=== PATIENT | female | born 1990 | race Caucasian/White ===

== ENCOUNTER 2019-11-11 17:33 | Emergency (ER) | payer OTHER, SELFPAY ==
[2019-11-11 17:46] VITALS: BP 133/77; PULSE 88; RESP 20; TEMP 36.9; O2SAT 99
[2019-11-11 18:03] LABS: Add Urine Microscopic? YES; Appearance Urine Cloudy (Clear); Bacteria Urine 2+ /hpf; Bilirubin Urine Negative (Negative); Blood Urine 3+ (Negative); Color Urine Yellow (Yellow); Glucose Urine UA Negative (Negative); Ketones Urine Negative (Negative); Leukocyte Esterase Ur 3+ LEU/UL (Negative); Mucus Urine Rare /lpf; Nitrate Urine Positive (Negative); Protein Urine 1+ mg/dL (Negative); RBC Urine 21-50 /hpf (0-2); Squamous Epithelial Cell Urine Occasional /hpf (Few); Urobilinogen Urine Negative mg/dL (<2.0); WBC Urine >75 /hpf
[2019-11-11 19:00] VITALS: BP 118/78; PULSE 75; RESP 18; TEMP 36.4; O2SAT 100
--- NOTE | 2019-11-11 19:01 | ED.ABDPAIN ---
HPI - Abdominal Pain General Chief Complaint: Urogenital-Female Stated Complaint: bladder inf Time Seen by Provider: 11/11/19 18:03 Source: patient Mode of arrival: ambulatory Limitations: no limitations History of Present Illness HPI narrative: Patient is a 29-year-old female who presents with concern for possible urinary tract infection with increasing low back pain in the lumbar region denies any belly pain fever chills nausea vomiting diarrhea and on arrival is resting comfortably in the room in no distress patient has not taken anything for symptoms and has not been seen for this complaint and has had similar occurrence in the past Related Data Allergies Allergy/AdvReac Type Severity Reaction Status Date / Time No Known Allergies Allergy Unverified 12/25/18 17:45 Review of Systems Review of Systems: All systems reviewed & are unremarkable except as noted in HPI and below PMFSH Surgical History Surgical History (Updated 11/11/19 @ 19:03 by Rodney Benavidez PA-C) S/P tonsillectomy Social History Social History (Updated 11/11/19 @ 19:03 by Rodney Benavidez PA-C) Smoking status: Current every day smoker Exam Narrative: Exam Narrative: GENERAL: Well-appearing, well-nourished, and in no acute distress. HEAD: Normocephalic, atraumatic. EYES: PERRLA and EOMI. ENT: Nares clear, no rhinorrhea or epistaxis. Mucous membranes moist. CHEST: Clear to auscultation. No respiratory distress. No wheezes rales or rhonchi HEART: Regular rate and rhythm. No murmur heard. EXTREMITIES: Normal range of motion. No edema. SKIN: Warm, dry, no rash. NEURO: No focal deficits. Alert and oriented x3. PSYCH: Normal mood and affect. Course Course Emergency Course: Patient in the room in no distress aware of case findings treatment plan and diagnosis agreeing to follow-up as directed Vital Signs Vital signs: Vital Signs Temperature 98.4 F 11/11/19 17:46 Pulse Rate 88 11/11/19 17:46 Respiratory Rate 20 11/11/19 17:46 Blood Pressure 133/77 11/11/19 17:46 Pulse Oximetry 99 11/11/19 17:46 Temperature 98.4 F 11/11/19 17:46 Pulse Rate 88 11/11/19 17:46 Respiratory Rate 11/11/19 17:46 Blood Pressure 133/77 11/11/19 17:46 Pulse Oximetry 99 11/11/19 17:46 MDM - Abdominal Pain MDM Narrative Medical decision making narrative: Patient will be treated for urinary tract infection afebrile nontoxic-appearing without emesis and no other complaints felt appropriate for outpatient reevaluation Lab Data Labs: Lab Results 11/11/19 Range/Units 17:48 Urine Color Yellow (Yellow) Urine Appearance Cloudy H (Clear) Urine pH 6.0 (5.0-9.0) Ur Specific [place] 1.010 (1.001-1.035) Urine Protein 1+ H (Negative) mg/dL Urine Glucose (UA) Negative (Negative) mg/dL Urine Ketones Negative (Negative) mg/dL Ur Blood (Man) 3+ H (Negative) Urine Nitrate Positive H (Negative) Urine Bilirubin Negative (Negative) Urine Urobilinogen Negative (<2.0) mg/dL Leukocyte Esterase Rfl 3+ H (Negative) MUSTAPHA/UL Urine RBC 21-50 H (0-2) /hpf Urine WBC >75 H /hpf Ur Squamous Epith Cells Occasional (Few) /hpf Urine Bacteria 2+ H /hpf Urine Mucus Rare /lpf UCG Bedside Result Negative Reference Range: Negative Discharge Plan Discharge Clinical Impression: Urinary tract infection Patient Disposition: Home, Self-Care Condition: Stable Instructions: Antibiotic Form, Urinary Tract Infection in Women (ED) Additional Instructions: Follow up with primary care in the next 2-3 days for re-evaluation. Antibiotics as prescribed. Increase fluid intake. Tylenol and Motrin for pain and or fever if needed. Follow up with your doctor for further care. Call your doctor or return to the emergency department if needed for worsening symptoms or problems, especially if you have persistent high fever, vomiting, inability to urinate, weakness, blood
[2019-11-11 20:08] VITALS: BP 118/68; PULSE 78; RESP 16; O2SAT 100
== END 2019-11-11 20:09 | disposition home or self-care (01) ==
PROVIDERS: Emergency Medicine; Emergency Provider Emergency Medicine
DX: N39.0 Urinary tract infection, site not specified (principal); F17.200 Nicotine dependence, unspecified, uncomplicated
CPT/HCPCS: 81001; 81025; 87077; 87086; 87088; 87186; 99283

== ENCOUNTER 2020-04-14 15:30 | Outpatient (RCR) | payer OTHER, SELFPAY ==
--- NOTE | 2020-03-17 15:48 | PTOPEVAL ---
PHYSICAL THERAPY EVALUATION AND PLAN OF CARE Thank you for referring Rosy Monreal to [facility]. I recommend Rosy participate in physical therapy 2x/week for 4 weeks to address below stated findings. Please review, sign, date and return this plan of care JOZEF. I agree with and certify that the following plan of care is medically necessary. Referring Physician Date Attending Provider: Champ Robles, MD Evaluation Diagnosis low back pain Onset 8 years Cause chronic lifting Subjective Information Rosy is here today with Query Text:As Reported By Patient/ chronic back pain from overuse Family /lifting. She worked as a DATA ENTRY SUPERVISOR for 10 years. She reports that sitting in a straight up or without a back she only lasts for about 30minutes. She reports that if she can slowly get out of bed, there is less discomfort, but if she has to get up right out of bed there is quite a bit of pain and unsteadiness. Reports tingling in bilateral legs and across lower back, specifically left leg to the knee. Does not do a lot of lifting except for some boxes on occasion and her 4 year old daughter. Diagnostic Tests X-Rays For This Problem Yes Other Tests For This Problem Yes: CT = DDD, herniated discs Lower Spine, Lumbar Reported Pain Level 3 Pain Description Aching Pain Frequency Chronic,Continuous Lowest Pain Intensity 2 Greatest Pain Intensity 8 Pain Aggravating Factors Lifting,Walking,Weight Bearing /Standing Lumbar ROM Lumbar Flexion (0-90) 50 Lumbar Extension (0-40) 5 Lateral Rotation Right (0-45) 15 Lateral Rotation Left (0-45) 15 Lumbar Strength Upper Abdominal Strength 3 Fair Lower Abdominal Strength 3 Fair Lumbar Functional Strength Comments decreased left sided lumbar stability as evidenced by decreased left SLS Lower Extremity Muscle Strength Testing General Lower Extremity Strength Reason Not Measured WNL/Left,WNL/Right Muscle Length Testing Two-Joint Hip Flexor Shortened Muscles Short (R) Iliopsoas,Short (L) Iliopsoas P
--- NOTE | 2020-04-14 16:18 | PTOPEVAL ---
PHYSICAL THERAPY DISCHARGE NOTE Thank you for referring Rosy Monreal to [facility]. See below for details of discharge. Please review, sign, date and return this plan of care JOZEF. I agree with and certify that the following plan of care is medically necessary. Referring Physician Date Attending Provider: Champ Robles, Diagnosis low back pain Onset 8 years Cause chronic lifting Subjective Information Rosy is here today with Query Text:As Reported By Patient/ chronic back pain from overuse Family /lifting. She reports there is no change at all from start of therapy. Electrical stimulation will give her a few hours relief, but returns back to normal. States that she does starts to feel pain when she is sitting on her bed and will try to ignore it, but when she cannot ignore it anymore, she will do her home exercise program. Reports her pain is constantly an 8 or 9 out of 10. States that when she sits too long it feels like someone is twisting my spine and wrapping barbed wire around it at the same time. Self Report Pain Assessment Lower Spine, Lumbar Reported Pain Level 8 Pain Description Aching Pain Frequency Chronic,Continuous Pain Aggravating Factors Lifting,Walking,Weight Bearing /Standing Pain Behaviors None Interventions Used By Clinicians Electrical Stimulation, Exercise,Heat,Manual Therapy Techniques Pain Score Pain Score 8: Self Report Cervical and Lumbar ROM Lumbar ROM Lumbar Flexion (0-90) 50 Query Text:Active in Degrees Lumbar Flexion Active [place] Query Text:Hands to: Lumbar Extension (0-40) 8 Query Text:Active in Degrees Lateral Rotation Right (0-45) 20 Query Text:Active in Degrees Lateral Rotation Left (0-45) 20 Query Text:Active in Degrees Lumbar Comments left rotation illicits pain along left hip Cervical and Lumbar Muscle Testing Lumbar Strength Upper Abdominal Strength 3+Fair+ Lower Abdominal Strength 3 Fair Lumbar Functional Strength Comments SLS symmetrical Lower Extremity Muscle Strength
== END 2020-04-18 13:10 | disposition home or self-care (01) ==
LOC: ANHPT 15:30
PROVIDERS: PCP Emergency Medicine; Visit Provider Orthopaedic Surgery
DX: M54.5 Low back pain (principal)
CPT/HCPCS: 97014; 97110; 97140; 97161; 97530; G0283

== ENCOUNTER 2020-07-05 11:00 | Outpatient (RCR) | payer OTHER, SELFPAY ==
--- NOTE | 2020-05-31 09:16 | PTOPEVAL ---
PHYSICAL THERAPY EVALUATION AND PLAN OF CARE Thank you for referring Rosy Monreal to [facility] The patient is scheduled to be seen for therapy? 1-2x/week for 4 weeks for aquatic therapy. Range of frequency is due to accommodating patient's work schedule. Please review, sign, date and return this plan of care JOZEF. I agree with and certify that the following plan of care is medically necessary. Referring Physician Date Attending Provider: Champ Robles, Evaluation Diagnosis low back pain Onset 10 years Additional Evaluation Detail MRI since last time she was here: herniated discs, pinches nerves, DDD Subjective Information Was here for therapy earlier Query Text:As Reported By Patient/ in the summer. She states that Family today her back pain is worse than it was. She started a second job. States that she has been doing her exercises at home but admits not as much as she should because she is always at work. States she can only sit for up to 15 minutes and after that amount of time her legs will go numb. If she is able to stand up and walk around it will take a few minutes to go back to normal. States she is supposed to set up pain management appointments also. Self Report Pain Assessment Right Spine, Lumbar Reported Pain Level 8 Pain Description Aching,Burning,Radiating,Sharp Pain Frequency Chronic,Continuous Lowest Pain Intensity 6 Greatest Pain Intensity 10 Pain Aggravating Factors ADL's,Bending,Changing Position,Exercise/Activity, Lifting,Palpation,Prolonged Position,Stair Climbing, Walking,Weight Bearing/ Standing Pain Behaviors Anxious,Teary Eyed/Crying Pain Relief Interventions Used By None Patient Lumbar ROM Lumbar Flexion (0-90) 25 Query Text:Active in Degrees Lumbar Extension (0-40) 5 Query Text:Active in Degrees Lateral Rotation Right (0-45) 40 Query Text:Active in Degrees Lateral Rotation Left (0-45) 15 Query Text:Active in Degrees Lumbar Comments reverse lumbar curve; extension:
--- NOTE | 2020-06-07 09:48 | PCPTNOTE ---
PT cancelled appointment at 13:30 due to scheduling conflict.
--- NOTE | 2020-06-21 09:18 | PCPTNOTE ---
Patient did not show up for scheduled appointment this date.
--- NOTE | 2020-06-28 08:08 | PCPTNOTE ---
Patient did not show up for scheduled appointment this date. Called and talked with patient stating she forgot the appointment. Rescheduled the appointment for 07/05/2020 at 11:00AM.
--- NOTE | 2020-07-05 13:24 | PCPTNOTE ---
Patient did not show up for scheduled appointment this date. Called patient and left a voicemail. Asked her to call back.
--- NOTE | 2020-07-19 16:42 | PCPTNOTE ---
PHYSICAL THERAPY DISCHARGE NOTE Attending Provider: Champ Robles, Patient:Rosy Monreal Date of :1990 Rosy has not returned for any further treatments since 07/05/2020, therefore she will be discharged at this time. Patient?s initial visit was on 05/31/2020 08:00 and she had a total of 2 visits. She did not show for three scheduled appointments and cancelled one scheduled appointment. The goals have not been met. Thank you for referring this patient to [facility]. Please review, sign, date and return this discharge summary JOZEF. I have been updated about the patient's current status and I agree with discharge from the above service at this time. Referring Physician Date
== END 2020-07-20 10:38 | disposition home or self-care (01) ==
LOC: ANHPT 11:00
PROVIDERS: Visit Provider Orthopaedic Surgery
DX: M54.5 Low back pain (principal)
CPT/HCPCS: 97113; 97162

== ENCOUNTER 2020-07-05 14:26 | Emergency (ER) | payer OTHER, SELFPAY ==
[2020-07-05 14:30] VITALS: BP 133/92; PULSE 94; RESP 16; TEMP 36.1; O2SAT 100
--- NOTE | 2020-07-05 15:48 | ED.DENTAL ---
HPI - Dental/Oral General Chief complaint: Dental/Oral Stated complaint: INFECTED TOOTH Time Seen by Provider: 07/05/20 14:56 Source: patient Mode of arrival: ambulatory Limitations: no limitations History of Present Illness HPI Narrative: patient is a 30-year-old female who presents to emergency department for evaluation of right sided dental pain with history of decay pain radiates into the ear and to the face patient patient has taken [id number] medications with minimal improvement. Patient presents in no distress and does not appear uncomfortable Related Data Home Medications Medication Instructions Recorded Confirmed cyclobenzaprine mg HS 07/05/20 naproxen BID 07/05/20 Allergies Allergy/AdvReac Type Severity Reaction Status Date / Time No Known Allergies Allergy Verified 07/05/20 15:08 Review of Systems Review of Systems: All systems reviewed & are unremarkable except as noted in HPI and below PMFSH Surgical History Surgical History S/P tonsillectomy Social History Social History Smoking status: Current every day smoker Gender identity (if verbalized by the patient): Female Exam Narrative: Exam Narrative: GENERAL: Well-appearing, well-nourished, and in no acute distress. HEAD: Normocephalic, atraumatic. EYES: PERRLA and EOMI. ENT: Nares clear, no rhinorrhea or epistaxis. Mucous membranes moist. Patient with dental decay no erythema swelling or other abnormalities of the oropharynx uvula is midline no trismus or drooling NECK: Supple. No adenopathy or masses. CHEST: Clear to auscultation. No respiratory distress. No wheezes rales or rhonchi HEART: Regular rate and rhythm. No murmur heard. SKIN: Warm, dry, no rash. NEURO: No focal deficits. Alert and oriented x3. PSYCH: Normal mood and affect. Course Course Emergency Course: Patient in the room in no distress aware of case findings treatment plan and diagnosis agreeing to follow-up as directed Vital Signs Vital signs: Vital Signs Temperature 96.9 F L 07/05/20 14:30 Pulse Rate 94 07/05/20 14:30 Respiratory Rate 16 07/05/20 14:30 Blood Pressure 133/92 H 07/05/20 14:30 Pulse Oximetry 100 07/05/20 14:30 Temperature 96.9 F L 07/05/20 14:30 Pulse Rate 94 07/05/20 14:30 Respiratory Rate 16 07/05/20 14:30 Blood Pressure 133/92 H 07/05/20 14:30 Pulse Oximetry 100 07/05/20 14:30 MDM - Dental/Oral MDM Narrative Medical decision making narrative: Paitents pain and complaint coupled with physical findings are consistant with dentalgia. There are no focal signs of space occupying lesions that are compromising to the ariway. The floor of the mouth is soft with no signs of Ludwigs Angina. Patient is without trismus or drooling and able to swallow secreations. Patient is felt appropriate for discharge home with dental follow up. Discharge Plan Discharge Clinical Impression: Toothache Patient Disposition: Home, Self-Care Condition: Stable Instructions: Antibiotic Form, Toothache (ED) Additional Instructions: Follow-up with dentistry in the next 7 days for reevaluation Return if symptoms worsen or concerns or any increase in redness swelling pain fever over 100.5 vomiting. Stay well-hydrated Only take medications as directed Follow patient education sheets Prescriptions: New clindamycin HCl 150 mg capsule 450 mg PO Q8H 10 Days Qty: 90 RF: 0 chlorhexidine gluconate [Peridex] 0.12 % mouthwash 15 ml MUCOUS MEM BID Qty: 1500 RF: 0 No Action cephalexin [Keflex] 500 mg capsule 500 mg PO Q12H 5 Days Qty: 10 RF: 0 naproxen 500 mg tablet BID RF: 0 cyclobenzaprine 10 mg tablet HS RF: 0 Follow-up/Referrals: PHYSICIAN,DISPOSAL MAN [Primary Care Provider] - Stand Alone Forms: Work/School Release IP
[2020-07-05 16:02] VITALS: BP 126/84; PULSE 76; RESP 16; O2SAT 98
== END 2020-07-05 16:03 | disposition home or self-care (01) ==
PROVIDERS: Emergency Provider Emergency Medicine
DX: K08.89 Other specified disorders of teeth and supporting structures (principal); F17.200 Nicotine dependence, unspecified, uncomplicated
CPT/HCPCS: 99283

== ENCOUNTER 2020-12-14 16:15 | Emergency (ER) | payer OTHER, SELFPAY ==
[2020-12-14 16:17] VITALS: BP 140/84; PULSE 74; RESP 14; TEMP 35.9; O2SAT 99
[2020-12-14 16:30] LABS: Basophils Percent Auto 0.4 % (0.2-1.2); Eosinophils Absolute Auto 0.1 K/mm3 (0-0.3); Eosinophils Percent Auto 0.9 % (0-4.4); Hematocrit 36.4 % (37.0-47.0); Hemoglobin 12.1 g/dL (12.0-15.0); Immature Granulocyte Absolute 0.03 K/mm3 (0.00-0.031); Immature Granulocyte Percent A 0.3 % (0-0.5); Lymphocytes Absolute Auto 3.64 K/mm3 (0.9-3.2); Lymphocytes Percent Auto 37.1 % (18.3-44.2); Mean Corpuscular HGB Conc 33.2 g/dl (32-36); Mean Corpuscular Hemoglobin 27.9 pg (26-34); Mean Corpuscular Volume 84.1 fl (80-100); Mean Platelet Volume 9.7 fl (7.4-10.4); Monocytes Absolute Auto 0.6 K/mm3 (0.1-0.6); Monocytes Percent Auto 6.2 % (2.6-8.5); Neutrophils Absolute Auto 5.4 K/mm3 (1.3-6.7); Neutrophils Percent Auto 55.1 % (45.5-73.1); Platelet Count Result 282 k/mm3 (150-375); Red Blood Count 4.33 M/mm3 (4.2-5.4); Red Cell Distribution Width 14.4 % (11.5-14.5); White Blood Count 9.8 K/mm3 (4.5-10.0)
--- NOTE | 2020-12-14 16:42 | ED.ABDPAIN ---
HPI - Abdominal Pain General Chief Complaint: Abdominal Pain Stated Complaint: abdominal pain/nausea Time Seen by Provider: 12/14/20 16:25 Source: patient Mode of arrival: ambulatory Limitations: no limitations History of Present Illness HPI narrative: This is a 30 year old female who presents for evaluation of intermittent epigastric pain. This pain has been presents for 3 days and she reports it occurs for a few minutes. It resolves spontaneous . She denies radiation of her pain. SHe reports nausea but no vomiting or fever. She denies back pain. She reports burning with urinary for 1 week. LMP 3 weeks ago. Related Data Home Medications Medication Instructions Recorded Confirmed cyclobenzaprine mg HS 07/05/20 naproxen BID 07/05/20 Allergies Allergy/AdvReac Type Severity Reaction Status Date / Time No Known Allergies Allergy Verified 12/14/20 16:53 Review of Systems Review of Systems: All systems reviewed & are unremarkable except as noted in HPI and below Constitutional: Constitutional: Denies chills and Denies fever(s) Cardiovascular: Cardiovascular: Denies chest pain Respiratory: Respiratory: Denies cough and Denies dyspnea Gastrointestinal: Gastrointestinal: Reports abdominal pain, Denies constipation, Denies diarrhea and Denies vomiting PMFSH Past Medical History Medical History (Updated 12/14/20 @ 17:57 by Jeanie Price MD) Patient denies medical problems Surgical History Surgical History (Updated 12/14/20 @ 16:46 by Jeanie Price MD) Hx of cholecystectomy S/P tonsillectomy Social History Social History Smoking status: Current every day smoker Gender identity (if verbalized by the patient): Female Exam Const: General: no acute distress and alert Orientation/consciousness: patient oriented x3 Chest: Chest palpation & inspection: normal inspection of the chest Resp: Effort & Inspection: normal respiratory effort and no retractions Auscultation: clear to auscultation bilaterally Cardio: Rate: regular rate Rhythm: regular rhythm Heart sounds: no murmurs GI: GI Palp: Yes Soft to palpation, Yes Tenderness to palpation present (GI) (epigastric) and No Guarding due to palpation present (GI) Auscultation: normal bowel sounds Skin: General skin exam: normal color Rashes: no rashes Neuro: General: patient oriented x3, moves all extremities and CN's II-XI intact bilaterally Psych: Mental Status: mental status grossly normal Affect: normal affect Course Reevaluation(s) Reevaluation #1: Patient is sleeping and in no acute distress. She reports she feels better. I Discussed UA shows UTI and labs are otherwise unremarkable. No fever or leukocytosis Date: 12/14/20 Time: 17:52 Vital Signs Vital signs: Vital Signs Temperature 96.7 F L 12/14/20 16:17 Pulse Rate 74 12/14/20 16:17 Respiratory Rate 14 12/14/20 16:17 Blood Pressure 140/84 12/14/20 16:17 Pulse Oximetry 99 12/14/20 16:17 Temperature 96.7 F L 12/14/20 16:17 Pulse Rate 88 12/14/20 18:29 Respiratory Rate 17 12/14/20 18:29 Blood Pressure 133/87 12/14/20 18:29 Pulse Oximetry 100 12/14/20 18:29 MDM - Abdominal Pain Lab Data Attestation: I reviewed the patient's lab results. Result diagrams: 12/14/20 16:23 12/14/20 16:23 Labs: Lab Results 12/14/20 12/14/20 12/14/20 Range/Units 16:23 16:23 16:30 WBC 9.8 (4.5-10.0) K/mm3 RBC 4.33 (4.2-5.4) M/mm3 Hgb 12.1 (12.0-15.0) g/dL Hct 36.4 L (37.0-47.0) % MCV 84.1 (80-100) fl MCH 27.9 (26-34) pg MCHC 33.2 (32-36) g/dl RDW 14.4 (11.5-14.5) % Plt Count 282 (150-375) k/mm3 MPV 9.7 (7.4-10.4) fl Immature Gran % (Auto) 0.3 (0-0.5) % Neut % (Auto) 55.1 (45.5-73.1) % Lymph % (Auto) 37.1 (18.3-44.2) % [place] % (Auto) 6.2 (2.6-8.5) % Eos % (Auto) 0.9 (0-4.4) % Ba
[2020-12-14 16:44] LABS: Alanine Aminotransferase 34 U/L (4-35); Albumin Level 4.3 g/dL (3.5-5.1); Alkaline Phosphatase 74 U/L (38-126); Anion Gap 7 mmol/L (8-16); Aspartate Amino Transferase 26 U/L (14-36); Bilirubin,Total 0.3 mg/dL (0.2-1.3); Blood Urea Nitrogen 10 mg/dL (7-17); Calcium 9.2 mg/dL (8.4-10.2); Carbon Dioxide 27 mmol/L (22-30); Chloride 107 mmol/L (98-107); Estimated CRCL calculation 111 ml/min; Estimated Glomerular Filt Rate > 60; Glucose 87 mg/dL (65-105); Lipase 151 U/L (23-300); Potassium 3.5 mmol/L (3.4-5.0); Sodium 141 mmol/L (137-145)
[2020-12-14 16:44] LABS: Add Urine Microscopic? YES; Amorphous Sediment Urine Few; Appearance Urine Cloudy (Clear); Bacteria Urine Trace /hpf; Bilirubin Urine Negative (Negative); Blood Urine Negative (Negative); Color Urine Straw (Yellow); Glucose Urine UA Negative (Negative); Ketones Urine Negative (Negative); Leukocyte Esterase Ur 3+ LEU/UL (Negative); Mucus Urine Rare /lpf; Nitrate Urine Negative (Negative); Protein Urine Negative (Negative); Specific Grav Ur 1.009 (1.001-1.035); Squamous Epithelial Cell Urine Occasional /hpf (Few); Urobilinogen Urine Negative mg/dL (<2.0); WBC Urine >75 /hpf
[2020-12-14] MEDS: BELLADONNA ALK/PHENOB ELIX 10 ML, MAG HYDROX/ALUMINUM HYD/SIMETH 30 ML, LIDOCAINE HCL 2... PO (16:54)
[2020-12-14] MEDS: ONDANSETRON HCL ODT 4 MG TABLET PO (16:54)
[2020-12-14 16:58] VITALS: BP 147/93; PULSE 83; RESP 15; O2SAT 98
[2020-12-14] MEDS: cefTRIAXone 1 GM VIAL IM (18:24)
[2020-12-14] MEDS: LIDOCAINE HCL 1% LOCAL INJ 20 ML VIAL (18:28)
[2020-12-14 18:29] VITALS: BP 133/87; PULSE 88; RESP 17; O2SAT 100
== END 2020-12-14 18:30 | disposition home or self-care (01) ==
PROVIDERS: Emergency Medicine; Emergency Provider General Practice
DX: N30.00 Acute cystitis without hematuria (principal); F17.200 Nicotine dependence, unspecified, uncomplicated
CPT/HCPCS: 36415; 80053; 81001; 81025; 83690; 85025; 87077; 87086; 87088; 87186; 96372; 99283; A9270; J0696

== ENCOUNTER 2021-02-08 16:54 | Emergency (ER) | payer OTHER, SELFPAY ==
--- NOTE | ~2021-02-08 | XR_ITS ---
EXAMINATION: XR chest 2V DATE: 02/08/2021 17:46 INDICATION: Shortness of breath. Chest pain. TECHNIQUE: Frontal and lateral views of the chest were obtained. COMPARISON: Chest 2 views 12/25/2018 FINDINGS: The chest demonstrates clear lungs without pneumonia, pleural effusion, or pneumothorax. Th e heart size is normal. Surgical clips in the right upper quadrant are likely from cholecystectomy. IMPRESSION: 1. No acute cardiopulmonary disease. Reviewed, dictated and finalized at location A.
[2021-02-08 16:55] VITALS: BP 143/83; PULSE 88; RESP 18; TEMP 36.5; O2SAT 99
[2021-02-08] MEDS: predniSONE 20 MG TABLET 60 MG PO (17:18)
[2021-02-08 17:28] VITALS: PULSE 80; RESP 16
[2021-02-08] MEDS: ALBUTEROL SULFATE NEB 2.5 MG/0.5 ML INH 5 MG INHALATION (17:28)
[2021-02-08] MEDS: IPRATROPIUM BR 0.02% INH SOLN 0.5 MG/2.5 ML VIAL INHALATION (17:28)
[2021-02-08 17:37] VITALS: PULSE 80; RESP 16
--- NOTE | 2021-02-08 17:55 | ED.URI ---
HPI - URI/Sore Throat General Chief Complaint: Upper Respiratory Infection Stated Complaint: hard to breathe, chest hurts Time Seen by Provider: 02/08/21 17:06 Source: patient Mode of arrival: ambulatory Limitations: no limitations History of Present Illness HPI Narrative: 30-year-old with no major medical problems here with complaints of cough chest tightness since this morning. She denies any fever or chills. Cough is nonproductive. She states that she had Covid in the month of November of this year. MD elicited complaint: cough Onset (ago): day(s) (1) Consistency: constant Severity: mild Exacerbating factors: nothing Relieving factors: nothing Related Data Home Medications Medication Instructions Recorded Confirmed cyclobenzaprine mg HS 07/05/20 naproxen BID 07/05/20 Allergies Allergy/AdvReac Type Severity Reaction Status Date / Time No Known Allergies Allergy Verified 02/08/21 17:01 Review of Systems Review of Systems: All systems reviewed & are unremarkable except as noted in HPI and below Constitutional: Constitutional: Reports no additional constitutional complaints Eyes: Eyes: Reports no additional eye complaints Cardiovascular: Cardiovascular: Reports no additional cardiovascular complaints Respiratory: Respiratory: Reports as per HPI Gastrointestinal: Gastrointestinal: Reports no additional gastrointestinal complaints Musculoskeletal: Musculoskeletal: Reports no additional musculoskeletal complaints Integumentary/Breasts: Skin/Breast: Reports system reviewed and no additional complaints, except as docu Neurologic: Reports system reviewed and no additional complaints, except as documented PMFSH Past Medical History Medical History Patient denies medical problems Surgical History Surgical History Hx of cholecystectomy S/P tonsillectomy Social History Social History Smoking status: Current every day smoker Gender identity (if verbalized by the patient): Female Exam Narrative: Exam Narrative: GENERAL: Well-appearing, well-nourished, and in no acute distress. HEAD: Normocephalic, atraumatic. EYES: PERRLA and EOMI. NECK: Supple. CHEST: Clear to auscultation. No respiratory distress. HEART: Regular rate and rhythm. No murmur heard. Normal peripheral pulses. ABDOMEN: Soft, nontender, nondistended, normal active bowel sounds. EXTREMITIES: Normal range of motion. No edema. SKIN: Warm, dry, no rash. NEURO: No focal deficits. Alert and oriented x3. PSYCH: Normal mood and affect. Course Course Emergency Course: Inform patient about her chest x-ray findings. Patient states that she is feeling much better after neb treatment. I advised her to take prednisone as prescribed. Can use the inhaler as needed. Vital Signs Vital signs: Vital Signs Temperature 36.5 C 02/08/21 16:55 Pulse Rate 88 02/08/21 16:55 Respiratory Rate 18 02/08/21 16:55 Blood Pressure 143/83 H 02/08/21 16:55 Pulse Oximetry 99 02/08/21 16:55 Temperature 36.5 C 02/08/21 16:55 Pulse Rate 80 02/08/21 17:37 Respiratory Rate 16 02/08/21 17:37 Blood Pressure 143/83 H 02/08/21 16:55 Pulse Oximetry 99 02/08/21 16:55 MDM - URI/Sore Throat Imaging Data Radiologist's impression: ITS Impressions Chest X-Ray 02/08/21 17:47 IMPRESSION: 1. No acute cardiopulmonary disease. Discharge Plan Discharge Clinical Impression: Bronchitis, Viral infection Patient Disposition: Still a Patient Condition: Stable Instructions: Acute Bronchitis (ED) Prescriptions: New prednisone 20 mg tablet 20 mg PO DAILY Qty: 7 RF: 0 albuterol sulfate [ProAir HFA] 90 mcg/actuation HFA aerosol inhaler 1 inh inhalation QID PRN (Reason: shortness of breath or wheezing) Qty: 6.7 RF: 0 No Action cephalexin
[2021-02-08 18:14] VITALS: BP 133/74; PULSE 88; RESP 19; O2SAT 100
== END 2021-02-08 18:20 | disposition home or self-care (01) ==
PROVIDERS: Emergency Provider Family Medicine
DX: J40 Bronchitis, not specified as acute or chronic (principal); B34.9 Viral infection, unspecified; F17.200 Nicotine dependence, unspecified, uncomplicated
CPT/HCPCS: 71046; 94640; 99283; J7512

== ENCOUNTER 2021-04-21 08:44 | Emergency (ER) | payer OTHER, SELFPAY ==
[2021-04-21 08:50] VITALS: BP 128/84; PULSE 68; RESP 18; TEMP 36.8; O2SAT 98
--- NOTE | 2021-04-21 09:28 | ED.GENADULT ---
HPI - General Adult General Chief complaint: Unspecified Stated complaint: multiple complaints Time Seen by Provider: 04/21/21 08:56 Source: patient and RN notes reviewed Mode of arrival: ambulatory Limitations: no limitations History of Present Illness HPI narrative: This is a 30 year old female with history of chronic back and arm pain who presents for evaluation of right arm pain and right dental abscess. She reports for the past 3 days she has had worsen right upper molar pain. She states her tooth has been broken off for while. She is unable to find a dentist to take her insurance so she states she frequently gets dental abscess. She denies fever, chills, nausea, vomiting gum swelling or drainage. She reports a metalic taste in her mouth. She also reports several years ago of right hand numbness and difficulty gripping. She states it seems worse over the past week. She denies focal weakness, headache. Related Data Home Medications Medication Instructions Recorded Confirmed cyclobenzaprine mg HS 07/05/20 naproxen BID 07/05/20 Allergies Allergy/AdvReac Type Severity Reaction Status Date / Time NSAIDS (Non-Steroidal Allergy Itching Verified 04/21/21 09:29 Anti-Inflamma Review of Systems Review of Systems: All systems reviewed & are unremarkable except as noted in HPI and below PMFSH Past Medical History Medical History (Updated 04/21/21 @ 09:41 by Jeanie Price MD) Chronic back pain Patient denies medical problems Surgical History Surgical History Hx of cholecystectomy S/P tonsillectomy Social History Social History Smoking status: Current every day smoker Gender identity (if verbalized by the patient): Female Exam Narrative: Exam Narrative: GENERAL: Well-appearing, well-nourished, and in no acute distress. HEAD: Normocephalic, atraumatic EYES: PERRLA and EOMI, conjunctiva clear without discharge NOSE: Nares clear, no rhinorrhea or epistaxis THROAT:Mucous membranes moist, Oropharynx normal without erythema, exudate, peritonsillar swelling or fluctuance, NECK: Supple, without lymphadenopathy or mass RESPIRATORY: No respiratory distress, Airway patent, Respirations non-labored, Clear to auscultation without rales, rhonchi or wheeze HEART: Regular rate and rhythm. No murmur heard. Normal peripheral pulses. ABDOMEN: Soft, nontender, nondistended, normal active bowel sounds. No masses. No rebound or guarding, No organomegaly. EXTREMITIES: No edema, normal strength with full range of motion. SKIN: Warm, dry, normal color without rash NEURO: Alert and oriented x3. CN 2-12 grossly intact. No focal deficits. no drift in arm, bilateral equal corrugator operator strong, sensation intact PSYCH: Normal mood and affect. HENMT: Teeth and gingiva: poor dentition (right tooth # 1 with tenderness, no drainage or gum swelling, no trismus) Course Reevaluation(s) Reevaluation #1: I have discussed with patient that she will be given antibiotics for tooth abscess and she will need to follow up with PCP regarding her radicular pain. No acute findings to suggest need of emergent intervention or imaging. Date: 04/21/21 Time: 09:39 Vital Signs Vital signs: Vital Signs Temperature 98.2 F 04/21/21 08:50 Pulse Rate 68 04/21/21 08:50 Respiratory Rate 18 04/21/21 08:50 Blood Pressure 128/84 04/21/21 08:50 Pulse Oximetry 98 04/21/21 08:50 Temperature 98.2 F 04/21/21 08:50 Pulse Rate 68 04/21/21 08:50 Respiratory Rate 18 04/21/21 08:50 Blood Pressure 128/84 04/21/21 08:50 Pulse Oximetry 98 04/21/21 08:50 Medical Decision Making Vital Signs Vital Signs: Vital Signs Temperature 98.2 F 04/21/21 08:50 Pulse Rate 68 04/21/21 08:50 Respiratory Rate 18 04/21/21 08:50 Blood Pressure 128/84 04/21/21 08:50 Pulse Oximetry 98 04/21/21 08:50 Temperatur
[2021-04-21] MEDS: AMOXICILLIN/CLAVULANATE K 875-125 MG TAB 1 TABLET PO (09:40)
[2021-04-21] MEDS: traMADol HCL (*CRX) 50 MG TABLET PO (09:40)
== END 2021-04-21 09:59 | disposition home or self-care (01) ==
PROVIDERS: Emergency Provider General Practice
DX: M54.12 Radiculopathy, cervical region (principal); K04.7 Periapical abscess without sinus; F17.200 Nicotine dependence, unspecified, uncomplicated
CPT/HCPCS: 99283; A9270

== ENCOUNTER 2021-07-19 08:24 | Outpatient (CLI) | payer OTHER, SELFPAY ==
--- NOTE | 2021-07-19 12:00 | NEURO_ITS ---
Impression: # Complains of numbness of right hand. # Right moderate Carpal Tunnel Syndrome. # No ulnar neuropathy. # Normal needle/EMG exam. Nerve Conduction Studies Anti Sensory Summary Table Stim Site NR Peak (ms) P-T Amp (?V) Site1 Site2 Delta-P (ms) Dist (cm) David (m/s) Left Median Anti Sensory (2-3nd Digit) Wrist 3.7 70.1 Wrist 2-3nd Digit 3.7 14.0 38 Wrist 3.6 58.7 Wrist 2-3nd Digit 3.7 14.0 38 Right Median Anti Sensory (2-3nd Digit) Wrist 7.2 23.1 Wrist 2-3nd Digit 7.2 14.0 19 Wrist 5.3 9.0 Wrist 2-3nd Digit 7.2 14.0 19 Left Radial Anti Sensory (Base 1st Digit) Wrist 2.0 31.5 Wrist Base 1st Digit 2.0 0.0 Right Radial Anti Sensory (Base 1st Digit) Wrist 1.9 35.9 Wrist Base 1st Digit 1.9 0.0 Left Ulnar Anti Sensory (5th Digit) Wrist 2.0 87.9 Wrist 5th Digit 2.0 14.0 70 Right Ulnar Anti Sensory (5th Digit) Wrist 2.1 89.1 Wrist 5th Digit 2.1 14.0 67 Motor Summary Table Stim Site NR Onset (ms) O-P Amp (mV) Site1 Site2 Delta-0 (ms) Dist (cm) David (m/s) Left Median Motor (Abd Poll Brev) Wrist 3.7 2.4 Elbow Wrist 4.8 27.0 56 Elbow 8.5 2.6 Right Median Motor (Abd Poll Brev) Wrist 5.4 1.0 Elbow Wrist 4.5 27.0 60 Elbow 9.9 1.4 Left Ulnar Motor (Abd Dig Minimi) Wrist 2.3 5.9 A Elbow Wrist 4.4 26.0 59 A Elbow 6.7 5.1 Right Ulnar Motor (Abd Dig Minimi) Wrist 2.0 6.3 A Elbow Wrist 4.5 27.0 60 A Elbow 6.5 4.9 F Wave Studies NR F-Lat (ms) L-R F-Lat (ms) Left Median (Mrkrs) (Abd Poll Brev) 24.51 0.52 Right Median (Mrkrs) (Abd Poll Brev) 25.03 0.52 Left Ulnar (Mrkrs) (Abd Dig Min) 24.38 0.47 Right Ulnar (Mrkrs) (Abd Dig Min) 23.91 0.47 EMG Side Muscle Nerve Root Ins Act Fibs Amp Dur Recrt Comment Right 1stDorInt Ulnar C8-T1 Nml Nml Nml Nml Nml Right Ext Indicis Radial (Post Int) C7-8 Nml Nml Nml Nml Nml Right Ext Digitorum Radial (Post Int) C7-8 Nml Nml Nml Nml Nml Right BrachioRad Radial C5-6 Nml Nml Nml Nml Nml Right PronatorTeres Median C6-7 Nml Nml Nml Nml Nml Right Abd Poll Brev Median C8-T1 Nml Nml Nml Nml Nml Left 1stDorInt Ulnar C8-T1 Nml Nml Nml Nml Nml Left Ext Indicis Radial (Post Int) C7-8 Nml Nml Nml Nml Nml Left Ext Digitorum Radial (Post Int) C7-8 Nml Nml Nml Nml Nml Left BrachioRad Radial C5-6 Nml Nml Nml Nml Nml Left PronatorTeres Median C6-7 Nml Nml Nml Nml Nml Left Abd Poll Brev Median C8-T1 Nml Nml Nml Nml Nml MTDD
== END 2021-07-19 08:25 | disposition home or self-care (01) ==
PROVIDERS: Visit Provider Internal Medicine
DX: G56.01 Carpal tunnel syndrome, right upper limb (principal)
CPT/HCPCS: 95886; 95911

== ENCOUNTER 2022-05-28 00:33 | Day surgery (SDC) | payer OTHER, SELFPAY ==
[2022-05-27 11:16] VITALS: BMI 28.5
--- NOTE | 2022-05-27 11:25 | PC.NURSE ---
Report to the Outpatient Waiting Room, entrance under the green pavilion located off [facility], at time 0600 on date 05/28/22. OR Time: 0730. - You and your visitor will be asked to self-screen and do not enter if you have any COVID symptoms. - Only one visitor and NO children visitors are allowed at this time. - The patient visitor is requested to leave or wait in car when not with patient due to restrictions. - A mask is required within the hospital. Patients may have clear liquids (water, carbonated beverages, clear teas, apple juice) until 3 hours prior to surgery with a maximum of 20 ounces. - No food from midnight until time of surgery Take the following medications with a SIP of water the morning of surgery: INHALER IF NEEDED Medications to discontinue per physician: N/A Date to take last dose: N/A Please no make-up, nail malawian, hairspray, perfume, deodorant, or body powder the day of surgery. No jewelry (including any body piercings) or valuables the day of surgery, leave them at home. Please take a shower or bath the night before, or the morning of, surgery with an antibacterial soap. Wear comfortable, loose fitting clothing. - Jewelry must be removed prior to entering the operating room. Rings and piercings that are not removed may be cut off. - The hospital will not accept responsibility for valuables. - Please leave all valuables, including medications, at home the day of surgery. If you are going home after surgery, a licensed wrecking car driver must drive you home. - NO public transportation without another adult. - We recommend that an adult stay with you for 24 hours following discharge. - We also recommend that you do not drive, make important decision, drink alcoholic beverages, or take any drugs that were not prescribed by your health care provider for at least 24 hours after your discharge time. Follow any additional instructions given to you from your surgeon. If you or anyone in your household have experienced Covid symptoms in the past week, please notify your surgeon or the nurse liaison at the phone number below for possible testing. Telephone instructions given to PT - LANDRY SHELTON and asked if any additional questions and then verbalized understanding. Patient advised to call surgeon office or pre surgery nurse liaison [phone] if any additional questions.
[2022-05-28] VITALS (10 sets, daily range): BP systolic 105–144; BP diastolic 60–85; PULSE 60–92; RESP 12–18; TEMP 36.5–36.9; O2SAT 94–100
[2022-05-28] MEDS: ACETAMINOPHEN 500 MG TABLET 1000 MG PO (06:41)
[2022-05-28] MEDS: LACTATED RINGERS 1,000 ML 30 ML IV CONT ×2 (06:42→09:22)
[2022-05-28] MEDS: SCOPOLAMINE 1.5 MG PATCH TRANSDERM (06:43)
--- NOTE | 2022-05-28 07:07 | WPDHPUPDATE1 ---
History and Physical Update Update Date/Time: 05/28/22 07:07 History and Physical has been reviewed, including an updated exam of the patient. There are NO changes in the patient's condition. Risks, benefits, and alternatives have been discussed and questions answered. Patient agrees to proceed with procedure.
--- NOTE | 2022-05-28 07:17 | WPDANESEPPF ---
Anes - Initial Pre Proc Eval Procedure: Operation Date: 05/28/22 07:30 Proposed Procedures p Total Laparoscopic Hysterectomy with Bilateral Salpingo-Oophorectomy - Easton Brock MD Date/Time: 05/28/22 07:17 Surgeon: Easton Brock MD Pre Op Diagnosis: Pelvic Pain Patient Data Age: 31 Gender: F Height: 1.62 m Weight: 72.1 kg Last Vital Signs Temp 97.7 F 05/28/22 06:24 Pulse 74 05/28/22 06:24 Resp 16 05/28/22 06:24 BP 117/78 05/28/22 06:24 Pulse Ox 100 05/28/22 06:24 O2 Del Method Room Air 05/28/22 06:24 Allergies Allergy/AdvReac Type Severity Reaction Status Date / Time NSAIDS (Non-Steroidal Allergy Anaphylaxis Verified 05/28/22 06:35 Anti-Inflamma Home Medications Medication Instructions Recorded Confirmed Type albuterol sulfate 90 mcg/actuation 1 inh inhalation QID PRN shortness 02/08/21 05/28/22 Rx aerosol inhaler (ProAir HFA) of breath or wheezing #6.7 grams nicotine (polacrilex) 4 mg buccal 4 mg PO BID 05/27/22 05/28/22 History lozenge Patient hx anesthesia problems: none Family hx anesthesia problems: none Results Review: All pre-operative results and documents have been reviewed as part of the pre-operative evaluation. FORMERLY [facility] Past Medical History Medical History (Updated 04/22/21 @ 00:00 by Mima Guardado) Chronic back pain Patient denies medical problems Surgical History Surgical History Hx of cholecystectomy S/P tonsillectomy Social History Social History Smoking packs per day: 1 Smoking cigarettes per day: 20.0 Years smoked: 16 Smoking pack-years: 16.00 Smoking status: Current every day smoker Tobacco type: cigarettes Alcohol intake: current Alcohol use details: TWICE PER YEAR Substance use: current Substance use type: marijuana Living arrangements: with family Additional living arrangements comments: GRANDPARENTS, CHILD Gender identity (if verbalized by the patient): Female Spiritual care concerns: No Anes - Eval Final PreProcedure Day of Procedure 05/28/22 07:17 Patient weight: normal Heart: regular rate and rhythm Lungs: clear to auscultation Airway: Mallampati scale class II Neurological: alert and oriented Last oral intake: >/= 8 hours ASA classification: II Emergent: no Anesthetic plan: proceed Anesthesia type and monitoring: general ETT and standard monitoring Results Review: All pre-operative results and documents have been reviewed as part of the pre-operative evaluation. Informed Consent: The patient's anesthetic plan and its attendant risks and benefits were discussed with the patient/family/POA. Questions were solicited and answers provided to the satisfaction of the patient/family/POA.
[2022-05-28] MEDS: ceFAZolin 2 GM/D5W 50 ML 2 GM/50 ML BAG IVPB (07:27)
[2022-05-28] MEDS: ceFAZolin SODIUM 1 GM VIAL (08:32)
--- NOTE | 2022-05-28 09:29 | P.OP_ITS ---
Procedure Note - Detailed Date of Procedure 05/28/22 Pre-op Diagnosis Pelvic Pain Post-op Diagnosis Same Procedure Performed Total laparoscopic hysterectomy and bilateral salpingo-oophorectomy. Surgeon Easton Brock MD Anesthesia General Indications pelvic pain Findings Endometriosis, mildly enlarged uterus, normal-appearing ovaries and tubes. Description of Procedure This patient was taken to the operating room. She was prepped and draped in the dorsal lithotomy position after induction of general anesthesia. The uterine manipulator and Connie cup were placed. This was done with a speculum and tenaculum. The speculum was placed. The cervix was grasped with a tenaculum. The stay sutures were placed at 3 and 9:00 a.m.. The stay sutures of 0 Vicryl were brought through the appropriately sized Connie cup. The tip of the FATOUMATA manipulator was placed in the intrauterine cavity. The cup was slid into place around the cervix and into the fornices. It was locked into place. The sutures were then wrapped around the handle and tied under tension. A 5 mm skin incision was made in the left upper quadrant the abdomen. A 5 mm trocar was inserted into the intrauterine cavity under direct visualization of the scope. Pneumoperitoneum was achieved. A left lower quadrant 11 mm incision was made with scalpel. An 11 mm trocar was inserted into the anterior abdominal cavity under direct visualization the scope. A 5 mm infraumbilical incision was made with a scalpel and a 5 mm trocar was inserted the intra-abdominal cavity under direct visualization of the scope. Bilateral ureteral lysis was performed. This was done from the pelvic brim down to the uterine artery. This was done with careful dissection using sharp and blunt dissection. The infundibulopelvic ligaments were isolated after ident ification of the ureters bilaterally. These infundibulopelvic ligaments were cauterized and transected with LigaSure cautery. The para ovarian tissue was cauterized and transected with LigaSure cautery bilaterally. Moving around the ovary into the broad ligament the tissue was cauterized transected with LigaSure cautery. The round ligaments were cauterized transected with LigaSure cautery this was all done in a bilateral fashion. In a stepwise fashion along the lateral aspects of the uterus the round ligament and broad ligaments were cauterized transected down to the level of the uterine arteries. A bladder flap was created in the bladder was moved distally to the end of the cervix and over the Connie cup. The bilateral uterine arteries were cauterized and transected. Colpotomy was then performed. In a circumferential fashion the vagina was transected using unipolar cautery. The incision was made down on the Connie cup. The uterus, cervix, fallopian tubes and ovaries were taken out through the vagina. A pneumo occluder was placed in the vagina. The vaginal cuff was closed with a 0 V lock suture in a running fashion. The pelvis was irrigated with copious amounts antibiotic irrigation. The ureters were again examined and found to be intact and flowing freely under the uterine arteries into the bladder. The bladder was intact. It was examined directly. The vagina was irrigated with Betadine solution after removal of the Pneumo occluder. The patient was taken to recovery room. She was stable condition. Sponge lap and needle counts were correct x2. Estimated Blood Loss -20.0 Urine Output -300.0 Drains Yes Packing No Pathology Yes Complications No immediate complications Condition Stable Disposition Floor
[2022-05-28] MEDS: fentaNYL CITRATE INJ (*CRX) 100 MCG/2 ML VIAL 25 MCG IV PUSH ×5 (09:36→09:54)
[2022-05-28] MEDS: DEXTROSE 5%/0.45% SOD CHL 1,000 ML 125 ML IV CONT (10:52)
--- NOTE | 2022-05-28 11:37 | OBPPTRN ---
Patient transferred to post room #282 via bed. Support person present. Oriented to unit, room, information board, admission packet and security measures. Patient verbalizes understanding.
[2022-05-28] MEDS: HYDROcodone/acetaminophen (*CRX) 5-325 MG TABLET 1 TAB PO (13:43)
--- NOTE | 2022-05-29 08:32 | WPDANESPN ---
Anes - Prog Note Post-Op Date/Time: 05/29/22 08:32 Cardiovascular status: normal Respiratory status: normal Airway patency: baseline Mental status: baseline Post-Op hydration status: normal Vital Signs: Last Vital Signs Temp 36.9 C 05/28/22 16:05 Pulse 75 05/28/22 16:05 Resp 18 05/28/22 16:05 BP 144/85 H 05/28/22 16:05 Pulse Ox 98 05/28/22 16:05 O2 Del Method Room Air 05/28/22 16:05 O2 Flow Rate 8 05/28/22 09:35 Pain Score (VAS): 3 I/O: Intake & Output 05/28/22 05/29/22 05/29/22 23:59 07:59 15:59 Intake Total 480 Output Total 1000 Balance -520 Patient Feedback: Patient satisfied with anesthetic care.
== END 2022-05-28 17:00 | disposition home or self-care (01) ==
LOC: ANHSURGERY 07:24 → ANHOB2 10:36
PROVIDERS: PCP Internal Medicine; Visit Provider Obstetrics & Gynecology
PROC: 0UT9FZZ Resection of Uterus, Via Natural or Artificial Opening With Percutaneous Endoscopic Assistance (ICD-10-PCS; CPT 58571; principal; 2022-05-28 07:30)
DX: R10.12 Left upper quadrant pain (principal); N80.9 Endometriosis, unspecified; F17.210 Nicotine dependence, cigarettes, uncomplicated; N72 Inflammatory disease of cervix uteri; N83.8 Other noninflammatory disorders of ovary, fallopian tube and broad ligament; Z79.51 Long term (current) use of inhaled steroids
CPT/HCPCS: 58571; 36415; 88307; 99199; A9270; J0690; J1100; J1170; J1200; J2250; J2405; J2704; J2710; J3010; J7120

== ENCOUNTER 2022-11-08 16:46 | Emergency (ER) | payer OTHER, SELFPAY ==
--- NOTE | ~2022-11-08 | CT_ITS ---
EXAMINATION: CT cervical spine wo con DATE: 11/08/2022 17:29 INDICATION: Neck pain. Injury. TECHNIQUE: Computed tomography (CT) of the cervical spine was performed without intravenous contrast. Automated exposure control and iterative reconstruction technique were employed. The dose-length pro duct was 190.07 mGy-cm. COMPARISON: CT neck 04/13/2017 FINDINGS: There are bilateral otomastoid effusions with erosions of bone including the ossicles, cons istent with chronic otitis media. There is 18 degrees dextroscoliosis of cervical spine. There is hyp olordosis of cervical spine. Vertebral body heights and intervertebral disc heights are normal. There is multilevel mild facet joint osteoarthritis. No neural foraminal stenosis or central canal stenosi s. IMPRESSION: 1. No fracture. 2. Cervical dextroscoliosis. 3. Bilateral chronic otitis media. Reviewed, dictated and finalized at location A. AIN/CHECK AIRMAN
--- NOTE | ~2022-11-08 | CT_ITS ---
EXAMINATION: CT brain wo con DATE: 11/08/2022 17:27 INDICATION: Head injury. Neck pain. TECHNIQUE: Computed tomography (CT) of the head was performed without intravenous contrast. The mA wa s adjusted according to patient size. Iterative reconstruction technique was employed. The dose-lengt h product was 605.33 mGy-cm. COMPARISON: neck CT 04/13/17 FINDINGS: There is no intracranial hemorrhage, acute infarction, or abnormal intracranial mass lesion . The ventricles are normal in size. The orbits are normal. There is mild mucosal thickening in the p aranasal sinuses. There are bilateral otomastoid effusions with erosions of bone. IMPRESSION: 1. Normal brain. 2. Bilateral chronic otitis media. Reviewed, dictated and finalized at location A. FORCE DEVELOPMENT VICE PRESIDENT
--- NOTE | ~2022-11-08 | XR_ITS ---
EXAMINATION: XR humerus LT DATE: 11/08/2022 17:39 INDICATION: Left humerus injury. TECHNIQUE: 2 views of left humerus were obtained. COMPARISON: None. FINDINGS: Bone alignment is normal. No fracture. Joint spaces are well maintained. There is lateral u pper arm soft tissue swelling. IMPRESSION: 1. Normal left humerus. Reviewed, dictated and finalized at location A. BER TENDER IMPRESSION: 1. Normal left humerus.
--- NOTE | ~2022-11-08 | XR_ITS ---
EXAMINATION: XR shoulder LT min 2V DATE: 11/08/2022 17:39 INDICATION: Left shoulder injury. TECHNIQUE: 4 views of left shoulder were obtained. COMPARISON: None. FINDINGS: Bone alignment is normal. No fracture. Joint spaces are well maintained. IMPRESSION: 1. Normal left shoulder. Reviewed, dictated and finalized at location A. INE PECAN GATHERER IMPRESSION: 1. Normal left shoulder.
[2022-11-08 17:03] VITALS: BP 117/75; PULSE 92; RESP 20; TEMP 37; O2SAT 97
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
[2022-11-08] MEDS: ACETAMINOPHEN 500 MG TABLET 1000 MG PO (20:01)
== END 2022-11-08 20:21 | disposition home or self-care (01) ==
PROVIDERS: Emergency Provider Physician Assistant; PCP Internal Medicine
DX: S40.022A Contusion of left upper arm, initial encounter (principal); S09.90XA Unspecified injury of head, initial encounter; F17.210 Nicotine dependence, cigarettes, uncomplicated; H66.93 Otitis media, unspecified, bilateral; Y04.2XXA Assault by strike against or bumped into by another person, initial encounter
CPT/HCPCS: 70450; 72125; 73030; 73060; 99284; A9270

== ENCOUNTER 2023-01-02 20:49 | Emergency (ER) | payer OTHER, SELFPAY ==
[2023-01-02 20:52] VITALS: PULSE 81; RESP 16; TEMP 36.6; O2SAT 100
--- NOTE | 2023-01-02 21:17 | ED.EAR ---
HPI - Ear Problem General Chief complaint: Ear Stated complaint: Ear pain, swelling Time Seen by Provider: 01/02/23 21:07 History of Present Illness HPI Narrative: Patient here for evaluation of bilateral ear pain x3 days. Patient states that she has had a fullness sensation that started in her left ear and has since moved to the right. She denies any drainage from the ear. No sinus congestion, fevers or chills, nausea or vomiting, sick contacts. Has history of recurrent otitis media. Related Data Home Medications Medication Instructions Recorded Confirmed nicotine (polacrilex) 4 mg buccal 4 mg PO BID 05/27/22 05/28/22 lozenge Allergies Allergy/AdvReac Type Severity Reaction Status Date / Time NSAIDS (Non-Steroidal Allergy Anaphylaxis Verified 01/02/23 20:49 Anti-Inflamma Review of Systems Review of Systems: Gen: Denies fevers or chills Eyes: Denies eye pain or visual change ENT: reports ear pain Respiratory: Denies shortness of breath or cough CV: Denies chest pain or palpitations GI: Denies abdominal pain nausea, emesis or diarrhea : denies burning, urgency, frequency or hematuria Musculoskeletal: Denies back pain or muscle pain Neuro: Denies numbness, tingling, weakness or focal weakness Skin: Denies rash Except as documented, all other systems reviewed and negative PMFSH Past Medical History Medical History Chronic back pain Patient denies medical problems Surgical History Surgical History Hx of cholecystectomy S/P tonsillectomy Social History Social History Smoking packs per day: 1 Smoking cigarettes per day: 20.0 Years smoked: 16 Smoking pack-years: 16.00 Smoking status: Current every day smoker Tobacco type: cigarettes Alcohol intake: current Alcohol use details: TWICE PER YEAR Substance use: current Substance use type: marijuana Living arrangements: with family Additional living arrangements comments: GRANDPARENTS, CHILD Gender identity (if verbalized by the patient): Female Spiritual care concerns: No Exam Narrative: APPEARANCE: Well appearing, no pain in distress, well-nourished. Head: Normocephalic and atraumatic. EYES: PERRLA/EOMI, conjunctivae clear NOSE: No nasal drainage EARS: right ear is cloudy in appearance and is bulging. narrow ear canal on the left obscures full view of TM but visualized portion is normal. no mastoid tenderness. THROAT: Oropharynx is clear. Mucous membranes are moist. NECK: Supple. No adenopathy, no masses. RESPIRATORY: Airway patent, respirations nonlabored. Clear to auscultation bilaterally, no rales, rhonchi, wheezing. CARDIOVASCULAR: Regular rate and rhythm without murmurs, rubs, or gallops. ABDOMINAL: Normoactive bowel sounds. Soft, nontender, nondistended. No rebound tenderness or guarding. MUSCULOSKELETAL: Extremities are warm and well-perfused. Moves all extremities well. No edema. NEURO: Normal speech. No focal neurologic deficits. SKIN: Skin is warm and dry. No rashes. PSYCHIATRIC: Normal affect/mood. Course Vital Signs Vital signs: Vital Signs Temperature 97.8 F 01/02/23 20:52 Pulse Rate 81 01/02/23 20:52 Respiratory Rate 16 01/02/23 20:52 Pulse Oximetry 100 01/02/23 20:52 Oxygen Delivery Room Air 01/02/23 20:52 Temperature 97.8 F 01/02/23 20:52 Pulse Rate 81 01/02/23 20:52 Respiratory Rate 16 01/02/23 20:52 Blood Pressure 128/75 01/02/23 21:25 Pulse Oximetry 100 01/02/23 20:52 Oxygen Delivery Room Air 01/02/23 20:52 Medical Decision Making [facility] Narrative Medical decision making narrative: 32-year-old female here for evaluation of bilateral ear pain over the past several days, right TM appears infected on exam. She has no mastoid tenderness or systemic symptoms. Amarjit fragoso
[2023-01-02 21:25] VITALS: BP 128/75
== END 2023-01-02 21:27 | disposition home or self-care (01) ==
LOC: ANHED 21:21
PROVIDERS: Emergency Provider Physician Assistant; PCP Internal Medicine
DX: H66.91 Otitis media, unspecified, right ear (principal); F17.210 Nicotine dependence, cigarettes, uncomplicated
CPT/HCPCS: 99283

== ENCOUNTER 2023-07-08 14:49 | Emergency (ER) | payer OTHER, SELFPAY ==
--- NOTE | ~2023-07-08 | XR_ITS ---
XR chest 1V portable DATE: 07/08/2023 15:30 INDICATION: Cough for one week TECHNIQUE: Portable upright AP chest on 07/08/2023 1521 hours COMPARISON: 02/08/2021 PA and lateral chest FINDINGS: Normal heart size. No hilar or mediastinal enlargement. No pulmonary infiltrate or consolid ation, pleural effusion or pulmonary vascular congestion or pneumothorax is detected. Included skelet al structures are unremarkable. IMPRESSION: No active cardiopulmonary disease Reviewed, dictated and finalized at location L.
[2023-07-08 14:50] VITALS: BP 142/84; PULSE 72; RESP 18; TEMP 36.6; O2SAT 98
[2023-07-08 16:05] LABS: Influenza A QL RT-PCR Negative (Negative); Influenza B QL RT-PCR Negative (Negative); RSV RNA, RT-PCR Negative (Negative); SARS-CoV-2 RNA PCR Negative (Negative)
--- NOTE | 2023-07-08 19:05 | ED.URI ---
HPI - URI/Sore Throat General Chief Complaint: Upper Respiratory Infection Stated Complaint: cough Time Seen by Provider: 07/08/23 15:09 History of Present Illness HPI Narrative: Patient presenting with 1 week of URI symptoms including stuffy nose, sore throat, cough, chills, overall she is feeling better. Related Data Allergies Allergy/AdvReac Type Severity Reaction Status Date / Time NSAIDS (Non-Steroidal Allergy Anaphylaxis Verified 01/02/23 20:49 Anti-Inflamma Review of Systems Review of Systems: All systems reviewed & are unremarkable except as noted in HPI and below PMFSH Past Medical History Medical History Chronic back pain Patient denies medical problems Surgical History Surgical History Hx of cholecystectomy S/P tonsillectomy Social History Social History Smoking packs per day: 1 Smoking cigarettes per day: 20.0 Years smoked: 16 Smoking pack-years: 16.00 Smoking status: Current every day smoker Tobacco type: cigarettes Alcohol intake: current Alcohol use details: TWICE PER YEAR Substance use: current Substance use type: marijuana Living arrangements: with family Additional living arrangements comments: GRANDPARENTS, CHILD Gender identity (if verbalized by the patient): Female Spiritual care concerns: No Exam Narrative: EXAMINATION OF ORGAN SYSTEMS/BODY AREAS: Constitutional: Vital signs per nursing GENERAL:[No acute distress, non-toxic appearing.] HEAD: Normal with no signs of head trauma. EYES: EOMI, conjunctiva normal ENT: Hearing grossly intact, rhinorrhea LUNGS: Nonlabored breathing. Clear to auscultation bilaterally though patient coughing HEART: [Regular rate and rhythm] ABD: [Soft], [nontender to palpation] EXT: Normal range of motion SKIN: [No rashes or lesions.] NEURO: [Alert and oriented x 3. No gross focal sensory or strength deficits.] PSYCH: Normal affect Course Vital Signs Vital signs: Vital Signs Temperature 97.9 F 07/08/23 14:50 Pulse Rate 72 07/08/23 14:50 Respiratory Rate 18 07/08/23 14:50 Blood Pressure 142/84 H 07/08/23 14:50 Pulse Oximetry 98 07/08/23 14:50 Oxygen Delivery Room Air 07/08/23 14:50 Temperature 97.9 F 07/08/23 14:50 Pulse Rate 72 07/08/23 14:50 Respiratory Rate 18 07/08/23 14:50 Blood Pressure 142/84 H 07/08/23 14:50 Pulse Oximetry 98 07/08/23 14:50 Oxygen Delivery Room Air 07/08/23 15:06 MDM - URI/Sore Throat MDM Narrative Medical decision making narrative: ED COURSE AND MEDICAL DECISION MAKING: This 33 year old patient presents with symptoms most suggestive of viral upper respiratory tract infection. Lungs are clear bilaterally without any respiratory distress or accessory muscle use. COVID swab neg CXR reviewed/interpreted by myself does not show any obvious focal consolidation or pneumothorax, she will be discharged home in stable condition with expectant management. Return precautions were provided. Lab Data Labs: Lab Results 07/08/23 Range/Units 15:23 Influenza A (RT-PCR) Negative (Negative) Influenza B (RT-PCR) Negative (Negative) RSV (RT-PCR) Negative (Negative) SARS-CoV-2 RNA (RT-PCR) Negative (Negative) Discharge Plan Discharge Clinical Impression: Upper respiratory infection Patient Disposition: Home, Self-Care Condition: Stable Instructions: Antibiotic Form, Cold Symptoms (ED) Prescriptions: New fluticasone propionate [Allergy Relief (fluticasone)] 50 mcg/actuation spray,suspension 1 spray intranasal DAILY Qty: 16 0RF Rx Instructions: administer into each nostril Follow-up/Referrals: Alfonso Vega MD [Primary Care Provider] - 2 Days
== END 2023-07-08 16:51 | disposition home or self-care (01) ==
PROVIDERS: Emergency Provider Emergency Medicine; PCP Internal Medicine
DX: J06.9 Acute upper respiratory infection, unspecified (principal); Z20.822 Contact with and (suspected) exposure to COVID-19; F17.210 Nicotine dependence, cigarettes, uncomplicated; Z90.49 Acquired absence of other specified parts of digestive tract
CPT/HCPCS: 71045; 87637; 99283